=== PATIENT | male | born 1955 | race Two or more races ===

== ENCOUNTER 2021-07-14 09:42 | Outpatient (CLI) | payer OTHER | END 2021-07-14 09:52 | disposition home or self-care (01) | LOC: RAD 09:42 | PROVIDERS: ATTEND Internal Medicine Cardiovascular Disease | DX: M79.672 Pain in left foot (principal); M12.88 Other specific arthropathies, not elsewhere classified, other specified site ==

== ENCOUNTER 2021-07-15 09:34 | Outpatient (CLI) | payer OTHER | END 2021-07-15 09:47 | disposition home or self-care (01) | LOC: TOM 09:34 | PROVIDERS: ATTEND Internal Medicine Cardiovascular Disease | DX: M77.32 Calcaneal spur, left foot (principal); M12.872 Other specific arthropathies, not elsewhere classified, left ankle and foot ==

== ENCOUNTER 2021-07-24 07:19 | Outpatient (CLI) | payer OTHER | END 2021-07-24 07:20 | disposition home or self-care (01) | LOC: RAD 07:19 | PROVIDERS: ATTEND Orthopaedic Surgery | DX: S92.412A Displaced fracture of proximal phalanx of left great toe, initial encounter for closed fracture (principal); M77.32 Calcaneal spur, left foot ==

== ENCOUNTER 2022-01-27 09:59 | Outpatient (CLI) | payer OTHER | END 2022-01-27 10:06 | disposition home or self-care (01) | LOC: LAB 09:59 | PROVIDERS: ATTEND Orthopaedic Surgery | DX: E55.9 Vitamin D deficiency, unspecified (principal); M85.9 Disorder of bone density and structure, unspecified; E56.1 Deficiency of vitamin K ==